=== PATIENT | female | born 1950 | race Caucasian/White ===

== ENCOUNTER 2017-05-04 09:26 | Day surgery (SDC) | payer OTHER, MEDICARE ==
[~2017-05-04] VITALS: Ht 167.6 cm; Wt 54.4 kg
[~2017-05-04 09:26] MED LIST: CEFAZOLIN SOD 1 GM in D5W 50 ML IV ONE
[2017-05-04] MEDS ORDERED: MIDAZOLAM HCL 5 MG/5 ML VIAL ONE (11:29)
[2017-05-04] MEDS ORDERED: MIDAZOLAM HCL 2 MG/2 ML VIAL (VERSED) IVP ONE (11:30)
[2017-05-04] MEDS ORDERED: PROPOFOL 200MG/ 20ML VIAL (DIPRIVAN) IV ONE (12:45)
[2017-05-04] MEDS ORDERED: fentaNYL CITRATE 250 MCG/5 ML AMP IV ONE (12:45)
[2017-05-04] MEDS ORDERED: GLYCOPYRROLATE 0.2 MG/ML VIAL IJ ONE (12:45)
[2017-05-04] MEDS ORDERED: KETOROLAC TROMETHAMINE 30 MG VIAL IVP ONE (12:45)
[2017-05-04] MEDS ORDERED: SUCCINYLCHOLINE CHLORIDE 20 MG/ML(QUELICIN) IVP ONE (12:45)
[2017-05-04] MEDS ORDERED: SEVOFLURANE 15 MIN GAS INH ONE (12:45)
[2017-05-04] MEDS ORDERED: MIDAZOLAM HCL 5 MG/5 ML VIAL IVP ONE (12:45)
[2017-05-04] MEDS ORDERED: NEOSTIGMINE METHYLSULFATE 1 MG/ML, 10 ML VIAL IVP ONE (12:45)
[2017-05-04] MEDS ORDERED: LR 1,000 ML IV.SOLN IV ONE (12:45)
[2017-05-04] MEDS ORDERED: ROCURONIUM BROMIDE 10 MG/ML (ZEMURON) IV ONE (12:45)
[2017-05-04] MEDS ORDERED: BUPIVACAINE /EPINEPHRINE/PF 0.25% 30 ML VIAL INJ ONE (12:45)
[2017-05-04] MEDS ORDERED: LR 1,000 ML IV SCH (13:45)
[2017-05-04] MEDS ORDERED: MORPHINE 4 MG/ML INJ. SYRINGE IVP PRN ×3 (13:45)
[2017-05-04] MEDS ORDERED: METOCLOPRAMIDE HCL 10 MG/2 ML VIAL IVP PRN (13:45)
[2017-05-04] MEDS ORDERED: D5/0.45 NS 1,000 ML IV SCH (13:57)
[2017-05-04] MEDS ORDERED: HYDROmorphone 1 MG INJ. 1 MG/ML AMPUL IVP PRN (14:00)
[2017-05-04] MEDS ORDERED: HYDROcodone/ACETAMIN 5-325 MG TAB (NORCO/ VICODIN) PO PRN ×2 (14:00)
[2017-05-04 16:20] VITALS: BP_SYST 123
== END 2017-05-04 16:20 | disposition home or self-care (01) ==
LOC: SOR 09:26 → SMU 09:28 → SOR 16:20
PROVIDERS: ATTEND Colon & Rectal Surgery
DX: K76.9 Liver disease, unspecified (principal)
CPT/HCPCS: 47379; 88305; 88313; C1727; J0330; J0690; J1885; J2250; J2704; J2710; J3010; J3465; J3490 ×2; J7060; J7120; 88307

== ENCOUNTER 2019-10-17 06:00 | Day surgery (SDC) | payer OTHER, MEDICARE ==
[~2019-10-17] VITALS: Ht 167.6 cm; Wt 54.4 kg
[2019-10-17] MEDS ORDERED: CEFAZOLIN SOD 1 GM in D5W 50 ML IV ONE (07:00)
[2019-10-17] MEDS ORDERED: NS 1000 ML IV.SOLN IV ONE (07:30)
[2019-10-17] MEDS ORDERED: PROPOFOL 200MG/ 20ML VIAL (DIPRIVAN) IV ONE (07:30)
[2019-10-17] MEDS ORDERED: LR 1,000 ML IV.SOLN IV ONE (07:30)
[2019-10-17] MEDS ORDERED: BUPIVACAINE /EPINEPHRINE/PF 0.25% 30 ML VIAL INJ ONE (07:30)
[2019-10-17] MEDS ORDERED: KETOROLAC TROMETHAMINE 30 MG VIAL IVP ONE (07:30)
[2019-10-17] MEDS ORDERED: DEXAMETHASONE SOD PHOSPHATE 4 MG/ML VIAL IVP ONE (07:30)
[2019-10-17] MEDS ORDERED: SEVOFLURANE 15 MIN GAS INH ONE (07:30)
[2019-10-17] MEDS ORDERED: fentaNYL CITRATE/PF 100 MCG/2 ML AMP IVP ONE (07:30)
[2019-10-17] MEDS ORDERED: MIDAZOLAM HCL 5 MG/5 ML VIAL IVP ONE (07:30)
[2019-10-17] MEDS ORDERED: MEPERIDINE HCL/PF 100 MG/ML AMP IM ONE (07:30)
[2019-10-17] MEDS ORDERED: SUCCINYLCHOLINE CHLORIDE 20 MG/ML(QUELICIN) IVP ONE (07:30)
[2019-10-17] MEDS ORDERED: POLYMYXIN 500,000/BACIT.10,000 UNITS in NS IRR 1 L IR ONE (07:38)
[2019-10-17] MEDS ORDERED: LR 1,000 ML IV SCH (09:41)
[2019-10-17] MEDS ORDERED: ONDANSETRON HCL 4 MG/2 ML VIAL IVP PRN (09:45)
[2019-10-17] MEDS ORDERED: HYDROmorphone 1 MG INJ. 1 MG/ML AMPUL IVP PRN (09:45)
[2019-10-17] MEDS ORDERED: MEPERIDINE HCL/PF 25 MG/ML DISP.SYRIN IVP PRN (09:45)
[2019-10-17] MEDS ORDERED: KETOROLAC TROMETHAMINE 30 MG VIAL IVP PRN (09:45)
[2019-10-17 11:17] VITALS: BP_SYST 113
== END 2019-10-17 12:45 | disposition home or self-care (01) ==
LOC: SMU 06:00 → SDS 06:00
PROVIDERS: ATTEND Colon & Rectal Surgery
DX: K43.0 Incisional hernia with obstruction, without gangrene (principal); K40.90 Unilateral inguinal hernia, without obstruction or gangrene, not specified as recurrent; K76.89 Other specified diseases of liver; T83.718A Erosion of other implanted mesh to organ or tissue, initial encounter; K66.0 Peritoneal adhesions (postprocedural) (postinfection); Z90.49 Acquired absence of other specified parts of digestive tract
CPT/HCPCS: 47379; 49520; 49655; 88302; 88307; 88313; C1727; J0330; J0690; J1100; J1885; J2175; J2250; J2704; J3010; J3490; J7030; J7060; J7120

== ENCOUNTER 2022-05-14 12:45 | Emergency (ER) | payer OTHER, MEDICARE ==
[~2022-05-14] VITALS: Ht 167.6 cm; Wt 54.4 kg
[2022-05-14 13:00] VITALS: BP_SYST 134
--- NOTE | 2022-05-14 16:45 | NUR ---
Patient does not wish to proceed with medical care recommended by MD RICHARD. Patient given information related to possible complications, up to and including , which could occur as a result of leaving hospital at this time. Patient verbalizes understanding of risks involved leaving against medical advice. Patient did not sign AMA form.
[2022-05-14 17:05] VITALS: BP_SYST 123
== END 2022-05-14 16:45 | disposition left against medical advice (07) ==
LOC: SED 12:45
DX: R51.9 Headache, unspecified (principal); M25.552 Pain in left hip; I10 Essential (primary) hypertension; E78.5 Hyperlipidemia, unspecified; Z53.21 Procedure and treatment not carried out due to patient leaving prior to being seen by health care provider

== ENCOUNTER 2023-11-09 15:37 | Emergency (ER) | payer OTHER, MEDICARE ==
[~2023-11-09] VITALS: Ht 162.6 cm; Wt 47.6 kg
[2023-11-09 15:37] VITALS: BP_SYST 146; PULSE 82; RESP 18; TEMP 98.5; O2SAT 100
[2023-11-09 16:38] LABS: BASOPHILS % (AUTO) 0.6 % (0.0-2.0); EOSINOPHILS % (AUTO) 0.6 % (0.0-4.0); HEMATOCRIT 42.9 % (36-48); HEMOGLOBIN 14.5 g/dL (12.0-16.0); LYMPHOCYTES # (AUTO) 1.5 K/uL (1.0-5.5); LYMPHOCYTES % (AUTO) 21.8 % (20.5-51.5); MEAN CORPUSCULAR HEMOGLOBIN 30 pg (27-31); MEAN CORPUSCULAR HGB CONC 34 % (32-36); MEAN CORPUSCULAR VOLUME 88 fL (79.0-98.0); MONOCYTES # (AUTO) 0.6 K/uL (0.0-1.0); MONOCYTES % (AUTO) 8.3 % (1.7-9.3); NEUTROPHILS # (AUTO) 4.6 K/uL (1.8-7.7); NEUTROPHILS % (AUTO) 68.7 % (40.0-70.0); PLATELET COUNT (AUTO) 200 K/uL (130-430); RED CELL DISTRIBUTION WIDTH 14.9 % (9.0-15.0); WHITE BLOOD COUNT (AUTO) 6.7 K/uL (4.8-10.8)
[2023-11-09 16:40] LABS: ANION GAP 6 (5-15); CALCIUM 9.8 mg/dL (8.4-11.0); CARBON DIOXIDE 31 mmol/L (23-29); CHLORIDE 103 mmol/L (98-107); CREATININE 0.88 mg/dL (0.55-1.30); GLUCOSE 89 mg/dL (74-106); PROTHROMBIN TIME 10.3 SECS (9.5-12.5); SODIUM SERUM 140 mmol/L (136-145); UREA NITROGEN, BLOOD 16 mg/dL (8-21)
[2023-11-09 16:44] LABS: ALANINE AMINOTRANSFERASE 20 U/L (12-78); ALBUMIN 3.3 g/dL (3.4-4.8); ASPARTATE AMINOTRANSFERASE 15 U/L (10-37); BILIRUBIN,DIRECT 0.1 mg/dL (0.0-0.3); LIPASE 16 U/L (16-77); TOTAL BILIRUBIN 0.5 mg/dL (0.0-1.0); TOTAL PROTEIN, SERUM 7.4 g/dL (6.4-8.3)
[2023-11-09] MEDS: LIDOCAINE PATCH 5% 1 EA TP ONE (16:56)
[2023-11-09] MEDS: CYCLOBENZAPRINE HCL 10 MG TABLET (FLEXERIL) PO ONE (16:56)
[2023-11-09] MEDS: MORPHINE 4 MG INJ. 4 MG/ML VIAL IVP ONE ×2 (17:03→19:15)
[2023-11-09] MEDS: ONDANSETRON HCL 4 MG/2 ML VIAL IVP ONE (17:03)
[2023-11-09 17:11] LABS: BILIRUBIN,URINE NEGATIVE (NEGATIVE); BLOOD, URINE NEGATIVE (NEGATIVE); CLARITY/URINE CLEAR (CLEAR); COLOR,URINE YELLOW (YELLOW); GLUCOSE,URINE NEGATIVE (NEGATIVE); KETONES,URINE NEGATIVE (NEGATIVE); LEUKOCYTE ESTERASE ,URINE NEGATIVE (NEGATIVE); NITRITE, URINE NEGATIVE (NEGATIVE); PROTEIN URINE NEGATIVE (NEGATIVE); UROBILINOGEN,URINE 0.2 (0.2-1.0)
[2023-11-09] MEDS ORDERED: CYCL10TA24 PO (19:10)
[2023-11-09] MEDS ORDERED: NAPR-1172 PO (19:10)
[2023-11-09] MEDS ORDERED: PRED20TA PO (19:10)
[2023-11-09 19:25] VITALS: BP_SYST 188; PULSE 86; RESP 18; TEMP 98.7; O2SAT 94
== END 2023-11-09 19:25 | disposition home or self-care (01) ==
LOC: SED 15:37
DX: S09.90XA Unspecified injury of head, initial encounter (principal); R07.89 Other chest pain; G89.29 Other chronic pain; M62.838 Other muscle spasm; I10 Essential (primary) hypertension; Z79.899 Other long term (current) drug therapy; W22.8XXA Striking against or struck by other objects, initial encounter; Y93.89 Activity, other specified; Y92.89 Other specified places as the place of occurrence of the external cause; Y99.8 Other external cause status
CPT/HCPCS: 99285; 96374; 70450; 96375; 80076; 80048; 81001; 83690; 85025; 85610; 85730; 87040; 87086; 36415; 71100; 83605; 81003; J2405; J2270